=== PATIENT | male | born 1960 ===

== ENCOUNTER 2025-09-01 09:04 | Outpatient (CLI) | payer OTHER | END 2025-09-01 09:05 | disposition home or self-care (01) | LOC: CSHSLEEP 09:04 | PROVIDERS: ATTEND Internal Medicine Critical Care Medicine | DX: G47.33 Obstructive sleep apnea (adult) (pediatric) (principal); R53.83 Other fatigue; E11.9 Type 2 diabetes mellitus without complications; I10 Essential (primary) hypertension | CPT/HCPCS: 95800 ==